=== PATIENT | female | born 1985 | race Caucasian/White ===

== ENCOUNTER 2017-09-28 07:44 | Inpatient (IN) | payer OTHER ==
[2017-09-28] VITALS (11 sets, daily range): BP systolic 109–138; BP diastolic 63–85; PULSE 16–110; RESP 16–20; TEMP 97.1–98.2; O2SAT 100
[~2017-09-28] VITALS: Ht 175.3 cm; Wt 65.0 kg
[~2017-09-28 07:44] MED LIST: BACT800T5 PO; LEXA10TA PO; SUBO8MIS SL; TRICCAP PO
[2017-09-28] MEDS ORDERED: LIDOCAINE HCL 1% 50 ML VIAL INFIL PRN (08:45)
[2017-09-28] MEDS ORDERED: PENICILLIN G POTASSIUM INJ 5,000,000 UNITS in SODIUM CHLORIDE 0.9% INJ 100 ML IV ONE (08:45)
[2017-09-28] MEDS ORDERED: MINERAL OIL 10 ML VIAL TOPICAL PRN (08:45)
[2017-09-28] MEDS ORDERED: LIDOCAINE HCL 1% 50 ML VIAL I-DERMAL PRN (08:45)
--- NOTE | 2017-09-28 08:59 | PD ---
HPI Chief Complaint painful contractions Date Seen: Sep 28, 2017 Time Seen: 08:05 Travel History International Travel<30 Days: No Contact w/Intl Traveler<30Days: No Known Affected Area: No History of Present Illness HPI Ms Humphreys is a at 38/5 wks with 1 miscarriage and 1 with PMHx of asthma, tobacco use, and polysubstance abuse on suboxone (including IVDU of opioids and cocaine) and HCV who presents with painful contractions 4-5 minutes apart with some nausea but no emesis, and no leakage of fluid or ROM. Prior OB Hx: x2 with IOL x1 and no prior surgeries. Receiving routine PNC at [facility] with last appt last week. GBS and Hep B negative; states viral load lab taken yesterday. She has received no treatment for asthma during this . Her daily suboxone dose is 2-3mg/day and she took her daily dose this morning. Smokes 2-10 cigarettes per day; denies EtOH; other drug use as above but denies IVDU during this and admits to using cocaine 3-4x during this . Weeks Gestation: 38 Para: 2 : 5 Miscarriage: 1 : 1 History Past Medical History Narrative Medical asthma untreated during this HCV Obstetric History Obstetric History x2 with 1x IOL Past Surgical History Surgical History: No Previous Surgery Family History Family History: Negative Social History Alcohol Use: No Tobacco Use: Yes (2-10 cigarettes per day) Substance Abuse: Yes (suboxone 2-3mg/day, opioids with IVDU and cocaine; denies IVDU during this ) Allergies-Medications (Allergen,Severity, Reaction): Coded Allergies: No Known Allergies (Unverified , 09/28/17) Home Meds Active Scripts Ferrous Fum/Vit C/B12-If/Folic (Tricon Capsule) 110 Mg Iron-75 Mg-15 Mcg-0.5 Mg Capsule, 1 CAP PO DAILY for Nutritional Supplement for 30 Days, #30 CAP 1 Refill Prov:Varsha Ramirez CNM 09/21/17 Reported Medications Buprenorphine-Naloxone Sublingual Film (Suboxone Sublingual Film) 8-2 Mg Film, 0.25 FILM SL for opiate addiction, FILM Unique ID number required: 09/14/17 Escitalopram (Lexapro) 10 Mg Tab, 10 MG PO DAILY, #30 TAB 0 Refills 09/14/17 Discontinued Scripts Sulfamethoxazole-Trimethoprim (Bactrim DS) 800-160 Mg Tab, 1 TAB PO BID for Infection, #14 TAB 0 Refills Prov:Varsha Ramirez CNM BRINE PLANT OPERATOR 09/21/17 Review of Systems HENT: Headaches Cardiovascular: No: Chest Pain or Discomfort, Palpitations Respiratory: Short of Breath (during contractions) Gastrointestinal: Nausea, Abdominal Pain (contractions), No: Vomiting Genitourinary: No: Discharge, Vaginal Bleeding Physical Exam Vital Signs Date Time Temp Pulse Resp B/P (MAP) Pulse Ox O2 Delivery O2 Flow Rate FiO2 09/28/17 08:38 98.2 18 Narrative GENERAL: Well-nourished, well-developed patient. SKIN: Warm and dry. HEAD: Normocephalic and atraumatic. EYES: No scleral icterus. No injection or drainage. ENT: No nasal drainage noted. Mucous membranes pink. Airway patent. NECK: Supple, trachea midline. No JVD. CARDIOVASCULAR: Regular rate and rhythm without murmurs, gallops, or rubs. RESPIRATORY: Breath sounds equal bilaterally. No accessory muscle use. ABDOMEN/GI: Abdomen soft, non-tender, bowel sounds present, no rebound, no guarding Gravid to 38 weeks size Fundal Height: 38cm GENITOURINARY: External Genitalia: intact and normal in appearance Cervix: [posterior] Dilatation: 7cm Effacement: 90 Station: 0 Presentation: vtx Membranes: intact Uterine Contractions: regular FHT's: Category: 1 Baseline: 110 Reactive: yes Variability: moderate Decels: no EXTREMITIES: No cyanosis or edema. BACK: Nontender without obvious deformity. No CVA tenderness. NEUROLOGICAL: Awake and alert. Motor and sensory grossly within normal limits. Five out of 5 muscle strength in all muscle groups. Normal speech. Data Data Vital Signs Reviewed: Yes Orders Orders Vital Signs (Adult) .ON ADMISSION (09/28/17 08:23) ^ Labor Status (09/28/17 08:23) ^ Non Stress Test (09/28/17 08:23) ^ Hydration (09/28/17 08:23) Ob (2e) Additional Admit Info (09/28/17 08:34) Admit To Inpatient (09/28/17 ) Code Status (09/28/17 08:40) Vital Signs (Adult) .Per protocol (09/28/17 08:40) Activity Oob Ad Makenzie (09/28/17 08:40) Heart (09/28/17 08:40) Amnioinfusion (09/28/17 08:40) Urinary Catheter Management .ONCE (09/28/17 08:40) Diet Npo (09/28/17 Breakfast) Lactated Ringer's 1000 Ml Inj (Lr 1000 M (09/28/17 08:40) Lactated Ringer's 1000 Ml Inj (Lr 1000 M (09/28/17 08:40) Sodium Chlorid 0.9% 500 Ml Inj (Ns 500 M (09/28/17 08:45) Sodium Chlor 0.9% 1000 Ml Inj (Ns 1000 M (09/28/17 09:00) Lidocaine 1% Inj (50 Ml) (Xylocaine 1% I (09/28/17 08:45) Citric Acid-Sodium Citrate Liq (Bicitra (09/28/17 08:45) Fentanyl Inj (Fentanyl Inj) (09/28/17 08:45) Fentanyl Inj (Fentanyl Inj) (09/28/17 08:45) Complete Blood Count With Diff (09/28/17 08:40) Hold Clot (09/28/17 08:40) Abo/Rh Blood Type (09/28/17 08:40) Urinalysis - C+S If Indicated (09/28/17 08:40) Drug Screen, Random Urine (09/28/17 08:40) Type And Screen (09/28/17 08:40) Resp Oxygen Non Rebreathe Mask (09/28/17 ) ^ Epidural / Intrathecal Infus (09/28/17 08:40) Oxytocin 30 Units-500ml Premix (Pitocin (09/28/17 08:45) Lidocaine 1% Inj (50 Ml) (Xylocaine 1% I (09/28/17 08:45) Light Mineral Oil (Muri-Lube Oil) (09/28/17 08:45) Inpatient Certification (09/28/17 ) Specimen To Be Collected PRN (09/28/17 08:40) Specimen To Be Collected PRN (09/28/17 08:40) Penicillin G Potassium Inj (Pfizerpen-G (09/28/17 08:45) Penicillin G Potassium Inj (Pfizerpen-G (09/28/17 12:45) MDM Plan 32YO at 38/5 weeks in active labor, posterior, 7cm/90%/0 stn, vtx presentation, Cat 1 tracing w/baseline at 110 with moderate variability and no decels PLAN: -Admit to L&D -Not ruptured -Pt desires epidural -IVF -GBS negative/Hep B negative -Labs -HCV --Genotype and viral load Praful Beckett MD R1 Sep 28, 2017 08:59
[2017-09-28] MEDS ORDERED: LACTATED RINGER'S 1000 ML INJ 1,000 ML IV PRN (09:00)
[2017-09-28] MEDS ORDERED: SODIUM CHLORID 0.9% 500 ML INJ 500 ML IV PRN (09:00)
[2017-09-28] MEDS ORDERED: SODIUM CHLOR 0.9% 1000 ML INJ 1,000 ML IV PRN (09:00)
[2017-09-28] MEDS ORDERED: LACTATED RINGER'S 1000 ML INJ 1,000 ML IV SCH (09:00)
[2017-09-28] MEDS ORDERED: OXYTOCIN 30 UNITS-500ML PREMIX 500 ML IV ONE (09:00)
[2017-09-28] MEDS ORDERED: CITRIC ACID-SODIUM CITRATE LIQ 30 ML UDC PO SCH (09:00)
[2017-09-28 09:17] LABS: AUTOMATED NEUTROPHIL # 4.7 TH/MM3 (1.8-7.7); BASOPHIL # 0.1 TH/MM3 (0-0.2); BASOPHIL % 0.8 % (0.0-2.0); EOSINOPHIL # 0.1 TH/MM3 (0-0.4); EOSINOPHIL % 0.9 % (0.0-4.0); HEMATOCRIT 33.6 % (35.0-46.0); HEMO FLAGS DIFF FINAL; LYMPH % 24.9 % (9.0-44.0); LYMPHOCYTE # 1.8 TH/MM3 (1.0-4.8); MEAN CELL VOLUME 92.7 FL (80.0-100.0); MEAN CORPUSCULAR HEMOGLOBIN 30.7 PG (27.0-34.0); MEAN CORPUSCULAR HGB CONC 33.1 % (32.0-36.0); MONO % 8.2 % (0.0-8.0); NEUT % 65.2 % (16.0-70.0); PLATELET COUNT 211 TH/MM3 (150-450); RED BLOOD COUNT 3.63 MIL/MM3 (4.00-5.30); RED CELL DISTRIBUTION WIDTH 13.8 % (11.6-17.2); WHITE BLOOD COUNT 7.3 TH/MM3 (4.0-11.0)
[2017-09-28] MEDS ORDERED: SODIUM CHLORIDE 0.9% FLUSH 10 ML FLUSH IV FLUSH PRN (09:30)
[2017-09-28] MEDS ORDERED: ACETAMINOPHEN 325 MG TAB PO PRN (09:30)
[2017-09-28] MEDS ORDERED: ONDANSETRON ODT 4 MG TAB PO PRN (09:30)
[2017-09-28] MEDS ORDERED: WITCH HAZEL 50%/GLYCERIN 12.5% 40 PAD JAR TOPICAL PRN (09:30)
[2017-09-28] MEDS ORDERED: BENZOCAINE 20% TOPICAL SPRAY 60 ML CAN TOPICAL PRN (09:30)
[2017-09-28] MEDS ORDERED: ALUMINUM/MAGNESIUM/SIMETH 30 ML CUP PO PRN (09:30)
[2017-09-28] MEDS ORDERED: ZOLPIDEM TARTRATE 5 MG TAB PO PRN (09:30)
[2017-09-28] MEDS ORDERED: OXYTOCIN 30 UNITS-500ML PREMIX 500 ML IV SCH (09:30)
[2017-09-28] MEDS ORDERED: DOCUSATE SODIUM 50 MG/SENNA 8.6 MG TAB PO PRN (09:30)
--- NOTE | 2017-09-28 09:35 | HHI.HP ---
History & Physical H&P Chief Complaint painful contractions Date Seen: Sep 28, 2017 Time Seen: 08:05 Travel History International Travel<30 Days: No Contact w/Intl Traveler<30Days: No Known Affected Area: No History of Present Illness HPI Ms Humphreys is a at 38/5 wks with 1 miscarriage and 1 with PMHx of asthma, tobacco use, and polysubstance abuse on suboxone (including IVDU of opioids and cocaine) and HCV who presents with painful contractions 4-5 minutes apart with some nausea but no emesis, and no leakage of fluid or ROM. Prior OB Hx: x2 with IOL x1 and no prior surgeries. Receiving routine PNC at [facility] with last appt last week. GBS and Hep B negative; states viral load lab taken yesterday. She has received no treatment for asthma during this . Her daily suboxone dose is 2-3mg/day and she took her daily dose this morning. Smokes 2-10 cigarettes per day; denies EtOH; other drug use as above but denies IVDU during this and admits to using cocaine 3-4x during this . Weeks Gestation: 38 Para: 2 : 5 Miscarriage: 1 : 1 History (Limited) History Past Medical History Narrative Medical asthma untreated during this HCV Obstetric History Obstetric History x2 with 1x IOL Past Surgical History Surgical History: No Previous Surgery Family History Family History: Negative Social History Alcohol Use: No Tobacco Use: Yes (2-10 cigarettes per day) Substance Abuse: Yes (suboxone 2-3mg/day, opioids with IVDU and cocaine; denies IVDU during this ) Allergies-Medications Allergies-Medications (Allergen,Severity, Reaction): Coded Allergies: No Known Allergies (Unverified , 09/28/17) Home Meds Active Scripts Ferrous Fum/Vit C/B12-If/Folic (Tricon Capsule) 110 Mg Iron-75 Mg-15 Mcg-0.5 Mg Capsule, 1 CAP PO DAILY for Nutritional Supplement for 30 Days, #30 CAP 1 Refill Prov:Varsha Ramirez CNM CIVIL CLERK 09/21/17 Reported Medications Buprenorphine-Naloxone Sublingual Film (Suboxone Sublingual Film) 8-2 Mg Film, 0.25 FILM SL for opiate addiction, FILM Unique ID number required: 09/14/17 Escitalopram (Lexapro) 10 Mg Tab, 10 MG PO DAILY, #30 TAB 0 Refills 09/14/17 Discontinued Scripts Sulfamethoxazole-Trimethoprim (Bactrim DS) 800-160 Mg Tab, 1 TAB PO BID for Infection, #14 TAB 0 Refills Prov:Varsha Ramirez CNM CIVIL CLERK 09/21/17 ROS Review of Systems HENT: Headaches Cardiovascular: No: Chest Pain or Discomfort, Palpitations Respiratory: Short of Breath (during contractions) Gastrointestinal: Nausea, Abdominal Pain (contractions), No: Vomiting Genitourinary: No: Discharge, Vaginal Bleeding Physical Exam Physical Exam Vital Signs Date Time Temp Pulse Resp B/P (MAP) Pulse Ox O2 Delivery O2 Flow Rate FiO2 09/28/17 08:38 98.2 18 Narrative GENERAL: Well-nourished, well-developed patient. SKIN: Warm and dry. HEAD: Normocephalic and atraumatic. EYES: No scleral icterus. No injection or drainage. ENT: No nasal drainage noted. Mucous membranes pink. Airway patent. NECK: Supple, trachea midline. No JVD. CARDIOVASCULAR: Regular rate and rhythm without murmurs, gallops, or rubs. RESPIRATORY: Breath sounds equal bilaterally. No accessory muscle use. Mild end expiratory wheeze bilaterally. ABDOMEN/GI: Abdomen soft, non-tender, bowel sounds present, no rebound, no guarding Gravid to 38 weeks size Fundal Height: 38cm GENITOURINARY: External Genitalia: intact and normal in appearance Cervix: [posterior] Dilatation: 7cm Effacement: 90 Station: 0 Presentation: vtx Membranes: intact Uterine Contractions: regular FHT's: Category: 1 Baseline: 110 Reactive: yes Variability: moderate Decels: no EXTREMITIES: No cyanosis or edema. BACK: Nontender without obvious deformity. No CVA tenderness. NEUROLOGICAL: Awake and alert. Motor and sensory grossly within normal limits. Five out of 5 muscle strength in all muscle groups. Normal speech. Data Data Data Vital Signs Reviewed: Yes Orders Orders Vital Signs (Adult) .ON ADMISSION (09/28/17 08:23) ^ Labor Status (09/28/17 08:23) ^ Non Stress Test (09/28/17 08:23) ^ Hydration (09/28/17 08:23) Ob (2e) Additional Admit Info (09/28/17 08:34) Admit To Inpatient (09/28/17 ) Code Status (09/28/17 08:40) Vital Signs (Adult) .Per protocol (09/28/17 08:40) Activity Oob Ad Makenzie (09/28/17 08:40) Heart (09/28/17 08:40) Amnioinfusion (09/28/17 08:40) Urinary Catheter Management .ONCE (09/28/17 08:40) Diet Npo (09/28/17 Breakfast) Lactated Ringer's 1000 Ml Inj (Lr 1000 M (09/28/17 08:40) Lactated Ringer's 1000 Ml Inj (Lr 1000 M (09/28/17 08:40) Sodium Chlorid 0.9% 500 Ml Inj (Ns 500 M (09/28/17 08:45) Sodium Chlor 0.9% 1000 Ml Inj (Ns 1000 M (09/28/17 09:00) Lidocaine 1% Inj (50 Ml) (Xylocaine 1% I (09/28/17 08:45) Citric Acid-Sodium Citrate Liq (Bicitra (09/28/17 08:45) Fentanyl Inj (Fentanyl Inj) (09/28/17 08:45) Fentanyl Inj (Fentanyl Inj) (09/28/17 08:45) Complete Blood Count With Diff (09/28/17 08:40) Hold Clot (09/28/17 08:40) Abo/Rh Blood Type (09/28/17 08:40) Urinalysis - C+S If Indicated (09/28/17 08:40) Drug Screen, Random Urine (09/28/17 08:40) Type And Screen (09/28/17 08:40) Resp Oxygen Non Rebreathe Mask (09/28/17 ) ^ Epidural / Intrathecal Infus (09/28/17 08:40) Oxytocin 30 Units-500ml Premix (Pitocin (09/28/17 08:45) Lidocaine 1% Inj (50 Ml) (Xylocaine 1% I (09/28/17 08:45) Light Mineral Oil (Muri-Lube Oil) (09/28/17 08:45) Inpatient Certification (09/28/17 ) Specimen To Be Collected PRN (09/28/17 08:40) Specimen To Be Collected PRN (09/28/17 08:40) Penicillin G Potassium Inj (Pfizerpen-G (09/28/17 08:45) Penicillin G Potassium Inj (Pfizerpen-G (09/28/17 12:45) MDM MDM Plan 32YO at 38/5 weeks in active labor, posterior, 7cm/90%/0 stn, vtx presentation, Cat 1 tracing w/baseline at 110 with moderate variability and no decels PLAN: -Admit to L&D -Not ruptured -Pt desires epidural -IVF -GBS negative/Hep B negative -Labs -HCV --Genotype and viral load Praful Beckett MD R1 Sep 28, 2017 09:35
[2017-09-28 09:50] LABS: BACTERIA, URINE MOD /hpf; BLOOD, URINE MOD (NEG); COMMENT (UR) CULTURE INDICATED; CULTURE IF INDICATED CULTURE INDICATED; GLUCOSE,URINE NEG (NEG); KETONE, URINE NEG (NEG); MUCUS URINE FEW /lpf (OCC); NITRITE,URINE NEG (NEG); SQUAMOUS EPITHELIAL CELL URINE 19 /hpf (0-5); TRANSITIONAL EPI CELLS, URINE <1 /hpf; URINE COLOR YELLOW (YELLW/STRAW)
[2017-09-28] MEDS ORDERED: fentaNYL 2MCG-BUPIV 0.125% INJ 100 ML ONE (09:51)
[2017-09-28] MEDS ORDERED: ePHEDrine/NS 25 MG/5 ML SYR ONE (09:52)
--- NOTE | 2017-09-28 10:42 | PD.LABORPN ---
Subjective Subjective 32YO at 38/4 weeks tahmina regularly 2-3 minutes, Category 1 tracing w/ no decels Objective Vital Signs Vital Signs Date Time Temp Pulse Resp B/P (MAP) Pulse Ox O2 Delivery O2 Flow Rate FiO2 09/28/17 08:39 110 138/79 (98) 09/28/17 08:38 98.2 18 Objective Pelvic Exam: Cervix: posterior Dilatation: 8cm Effacement: 90% Station: 0 Presentation: vtx Membranes: AROM at 1030hrs Uterine Contractions: regular 2-3 minutes FHT's: Category: 1 Baseline: 110 Reactive: yes Variability: moderate Decels: no Weeks Gestation: 38 Gest Age Assessed Date: Sep 28, 2017 Gest Age Assessed Time: 10:25 Pt started active labor?: Yes Active labor start date: Sep 28, 2017 Active labor start time: 09:00 Medical induction of labor?: No Artificial rupture of membrane: Yes Artificial ROM date: Sep 28, 2017 Artifical ROM time: 10:30 Assessment/Plan Assessment and Plan 32YO at 38 weeks in active labor w/AROM @1030hrs with clear fluid, Cat 1 tracing, BL 110, reactive, moderate, no decels, vtx. 8cm/90%/0. Continue labor. Praful Beckett MD R1 Sep 28, 2017 10:42
--- NOTE | 2017-09-28 11:08 | PD.OB.DELI ---
Weeks gestation: 38 Gest age assessed date: Sep 28, 2017 Gest age assessed time: 10:25 Pt started active labor?: Yes Active labor start date: Sep 28, 2017 Active labor start time: 09:00 Medical induction of labor?: No Artificial rupture of membrane: Yes Artificial ROM date: Sep 28, 2017 Artifical ROM time: 10:30 Anesthesia: Epidural Episiotomy: None Vaginal Delivery: Normal, Spontaneous Presentation: Occiput anterior Nuchal Cord: x2 Delayed cord clamping (45 sec): Yes Infant: Female, Single Delivery date: Sep 28, 2017 Delivery time: 10:55 One Minute : 9 Five Minute : 9 Weight: 3280g Placenta: Spontaneous delivery, Intact, 3 vessel cord Laceration: No lacerations Estimated blood loss: 25cc Additional Information 32YO at 38/4 weeks delivered an female at 1055hrs via with nuchal cord x2, APGARs 9/9; there was no perineal laceration, placenta intact. Pedunculated HPV wart at [address] o[address] Vicente supervised; Dr Villafuerte assisted. Praful Beckett MD R1 Sep 28, 2017 11:08
[2017-09-28] MEDS ORDERED: NO SYSTEM NARCOTICS PRN (11:15)
[2017-09-28] MEDS ORDERED: ePHEDrine/NS 25 MG/5 ML SYR IV PUSH PRN (11:15)
[2017-09-28] MEDS ORDERED: fentaNYL 2MCG-BUPIV 0.125% 100 ML EPIDURAL SCH (11:15)
[2017-09-28] MEDS ORDERED: DO NOT ADMINISTER ANTICOAGULANTS PRN (11:15)
[2017-09-28] MEDS ORDERED: PENICILLIN G POTASSIUM INJ 2,500,000 UNITS in SODIUM CHLORIDE 0.9% INJ 100 ML IV SCH (13:00)
[2017-09-28] MEDS: IBUPROFEN 800 MG TAB PO PRN (13:47)
[2017-09-28] MEDS ORDERED: OXYTOCIN 10 UNIT/ML AMP ONE (14:58)
[2017-09-28] MEDS ORDERED: DIPHTH/TETANUS/ACEL PERTUSSIS (BOOSTER) 0.5 ML VIAL/PFS IM ONE (16:00)
[2017-09-28] MEDS ORDERED: MEASLES, MUMPS, RUBELLA VACCINE 0.5 ML VIAL SQ ONE (16:00)
[2017-09-28] MEDS ORDERED: NALOXONE SL SCH (21:00)
[2017-09-28] MEDS ORDERED: SODIUM CHLORIDE 0.9% FLUSH 10 ML FLUSH IV FLUSH SCH (21:00)
[2017-09-28] MEDS ORDERED: BUPRENORPHINE SL SCH (21:00)
[2017-09-29] MEDS: IBUPROFEN 800 MG TAB PO PRN (04:01)
[2017-09-29] MEDS ORDERED: NALOXONE SL SCH ×2 (05:00→17:00)
[2017-09-29] MEDS ORDERED: BUPRENORPHINE SL SCH ×2 (05:00→17:00)
--- NOTE | 2017-09-29 07:05 | HHI.OB ---
Subjective Post Day: 1 Remarks Ms Humphreys had no acute events overnight. She slept well, pain controlled on ibuprofen, is tolerating PO, voiding and passing flatus. Lochia is normal volume and decreasing. Pt would like depo for initial control. Denies CP, SOB, N/V/D and DVT pain. Objective Vitals/I&O Vital Signs Date Time Temp Pulse Resp B/P (MAP) Pulse Ox O2 Delivery O2 Flow Rate FiO2 09/28/17 19:50 97.9 16 16 113/65 (81) 09/28/17 11:57 20 09/28/17 11:45 66 117/74 (88) 09/28/17 11:45 20 09/28/17 11:30 20 09/28/17 11:30 68 109/63 (78) 09/28/17 11:16 70 119/65 (83) 09/28/17 11:15 97.1 09/28/17 11:13 68 114/67 (83) 09/28/17 11:13 20 09/28/17 10:49 111/85 (94) 09/28/17 10:45 62 100 09/28/17 08:39 110 138/79 (98) 09/28/17 08:38 98.2 18 Objective Remarks GENERAL: Well-nourished, well-developed patient in NAD. CARDIOVASCULAR: Regular rate and rhythm without murmur, gallops, or rubs. RESPIRATORY: Breath sounds equal bilaterally. No accessory muscle use. ABDOMEN/GI: Abdomen soft, non-tender. Fundus: Firm, non-tender at umbilicus. GENITOURINARY: Light to moderate bleeding. EXTREMITIES: No cyanosis or edema, non-tender, without signs of DVT. Medications and IVs Current Medications Medications (Trade) Dose Ordered Sig/Vincent Route Start Time Stop Time Status Last Admin Miscellaneous Information No systemic narcotics to be given except... UNSCH PRN .XX 09/28/17 11:15 09/29/17 11:14 Miscellaneous Information DO NOT ADMINISTER ANY ANTICOAGUL... UNSCH PRN .XX 09/28/17 11:15 09/29/17 11:14 Fentanyl/ Bupivacaine HCl 100 ml @ 0 mls/hr TITRATE EPIDURAL 09/28/17 11:15 (ePHEDrine/NS 25 MG/5 ML SYR) 10 mg UNSCH PRN IV PUSH 09/28/17 11:15 09/29/17 11:14 (Flu (Quadrivalent) Vaccine Inj) 0.5 ml ONCE ONCE IM 09/29/17 09:00 09/29/17 09:01 (NS Flush) 2 ml BID IV FLUSH 09/28/17 21:00 (NS Flush) 2 ml UNSCH PRN IV FLUSH 09/28/17 09:30 (Tylenol) 650 mg Q4H PRN PO 09/28/17 09:30 (Motrin) 800 mg Q8H PRN PO 09/28/17 09:30 09/29/17 04:01 (Americaine 20% Top Spr) 1 spray Q4H PRN TOPICAL 09/28/17 09:30 (Tucks Pads) 1 applic QID PRN TOPICAL 09/28/17 09:30 (Rachael-Colace) 2 tab Q12H PRN PO 09/28/17 09:30 (Ambien) 5 mg HS PRN PO 09/28/17 09:30 (Mag-Al Plus Susp Liq) 15 ml Q8H PRN PO 09/28/17 09:30 (Zofran Odt) 4 mg Q6H PRN PO 09/28/17 09:30 (Lexapro) 10 mg DAILY PO 09/29/17 09:00 Patient Own Medication PT OWN MED: DISSOLVE ... BID@0500,1700 SL 09/29/17 05:00 09/29/17 06:00 Assessment/Plan Assessment and Plan Ms Humphreys is a 32YO who delivered via at 37/4 and is PPD#1 AFVSS overnight. Pain controlled. Lochia less than or equal to a period. Denies dysuria. No breast tenderness. She is placing the baby for adoption today. Appetite good. No nausea or vomiting, has flatus but no bowel movement yet. Ambulating well. Denies calf pain, shortness of breath, or cough. Otherwise, she is doing well this morning and has no other complaints. PLAN: -Continue routine care -Ibuprofen PRN for pain -Rachael-colase PRN for constipation -Encouraged OOB. Advised pelvic rest for 6 wks -Will need a follow-up appointment in 6 wks for post- check -Depo-provera ordered for control Discussed with Maida Vicente and Praful Strauss MD R1 Sep 29, 2017 07:05
[2017-09-29] MEDS ORDERED: medroxyPROGESTERone ACETATE SUSP 150 MG/ML SYRINGE IM ONE (07:15)
[2017-09-29 07:30] VITALS: BP 107/69; PULSE 66; RESP 16; TEMP 98.1
[2017-09-29] MEDS ORDERED: INFLUENZA VIRUS VACCINE (QUADRIVALENT) 0.5 ML SYR IM ONE (09:00)
[2017-09-29] MEDS ORDERED: ESCITALOPRAM OXALATE 10 MG TAB PO SCH (09:00)
--- NOTE | 2017-09-29 10:02 | HHI.DCPOC ---
Discharge Care Plan Report Symptoms to Your Doctor -Temperature above 100.5 degrees -Redness, of incision or excessive or foul smelling drainage -Unusual pain or calf pain -Increased vaginal bleeding -Painful or difficulty urinating -Feelings of extreme sadness or anxiety after 2 weeks Goals to Promote Your Health * To prevent worsening of your condition and complications, please take all medications as prescribed and please do not put anything in your vagina for 6 weeks (including no sexual intercourse). * To maintain your health at the optimal level, please see your FREEZER OPERATOR or primary care provider in 6 weeks. Directions to Meet Your Goals Take your medications as prescribed Follow your dietary instruction Follow activity as directed Ensure plenty of rest for recovery Drink fluids for hydration Keep your appointments as scheduled Take your immunizations and boosters as scheduled If your symptoms worsen call your PCP, if no PCP go to Urgent Care Center or Emergency Room Smoking is Dangerous to Your Health. Avoid second hand smoke Call the 24-hour crisis hotline for domestic abuse at Praful Beckett MD R1 Sep 29, 2017 10:02
[2017-09-30 07:53] LABS: HCV RNA PCR IU/ML 234000 IU/mL (0-14); HCV RNA PCR LOGIU/ML 5.37 (0-1.18)
[2017-10-01 03:49] LABS: HEPATITIS C RNA GENOTYPE 1a (NOT DETECTD)
== END 2017-09-29 15:17 | disposition home or self-care (01) | DRG 774 ==
LOC: HOBED 07:44 → H2EA 08:39 → H1EA 12:29
PROVIDERS: ADMIT Obstetrics & Gynecology Maternal & Fetal Medicine; ATTEND Obstetrics & Gynecology Maternal & Fetal Medicine
PROC: 10E0XZZ Delivery of Products of Conception, External Approach (ICD-10-PCS; principal; 2017-09-28)
PROC: 10907ZC Drainage of Amniotic Fluid, Therapeutic from Products of Conception, Via Natural or Artificial Opening (ICD-10-PCS; 2017-09-28)
DX: O99.52 Diseases of the respiratory system complicating childbirth (principal); O98.42 Viral hepatitis complicating childbirth; F11.20 Opioid dependence, uncomplicated; O98.32 Other infections with a predominantly sexual mode of transmission complicating childbirth; F17.210 Nicotine dependence, cigarettes, uncomplicated; O99.334 Smoking (tobacco) complicating childbirth; J45.909 Unspecified asthma, uncomplicated; O99.324 Drug use complicating childbirth; F14.10 Cocaine abuse, uncomplicated; B18.2 Chronic viral hepatitis C; A63.0 Anogenital (venereal) warts; O69.81X0 Labor and delivery complicated by cord around neck, without compression, not applicable or unspecified; Z37.0 Single live birth; Z3A.38 38 weeks gestation of pregnancy; Z23 Encounter for immunization
CPT/HCPCS: 59025; 76937; 80307; 81001; 85025; 86850; 86900; 86901; 87086; 87522; 87902; 90686; 90707; G0481; J1050; J2590; J7120; Q2038